=== PATIENT | female | born 1960 | race Caucasian/White ===

== ENCOUNTER → 2023-10-14 07:38 | Outpatient (REF) | payer MEDICARE, OTHER, SELFPAY | LOC: WDC 07:38 | PROVIDERS: ATTENDING PHYSICIAN Surgery; FAMILY PHYSICIAN Family Medicine | DX: R92.2 Inconclusive mammogram (principal) | CPT/HCPCS: 76641 ==

== ENCOUNTER → 2023-12-16 07:26 | Outpatient (REF) | payer MEDICARE, OTHER, SELFPAY | LOC: WDC 07:26 | PROVIDERS: ATTENDING PHYSICIAN Obstetrics & Gynecology; FAMILY PHYSICIAN Family Medicine | DX: Z12.31 Encounter for screening mammogram for malignant neoplasm of breast (principal) | CPT/HCPCS: 77063; 77067 ==

== ENCOUNTER 2024-04-17 17:59 | Emergency (ER) | payer MEDICARE, OTHER, SELFPAY ==
[2024-04-17 18:07] VITALS: BP 170/95
--- NOTE | 2024-04-17 19:23 | ED.GENMED ---
History of Present Illness
General
Chief Complaint: Swallowing Problem
Source: patient
Exam Limitations: none
Time Seen by Provider: 04/17/24 18:58
History of Present Illness
History of Present Illness:
64yoF with a history of chronic sinusitis, hyperlipidemia, hypertension, and GERD presenting with her for evaluation of throat irritation. Patient was eating a crews cordial about 3 hours ago and was sucking on the liquid. She accidentally
swallowed the piece of chocolate and 'it went down the wrong pipe.' She was able to cough up the chocolate but she continues to have a tickle in the back of her throat with frequent coughing. She is worried that she may have aspirated.
Past History
Past History
ED Past Medical History: GERD, Psychiatric (Anxiety/depression, Panic disorder) and Other (Chronic sinusitis, back pain, Migraines, 'Bronchial asthma', Diverticulitis, UTI)
ED Past Surgical History: Gynecological (Hysterectomy, D&C �2) and Other (s/p adrenal mass excision-benign, s/p right lung nodule excision-encapsulated TB, cyst removed from face, sinus surgery X 3, calcification removed from breast)
Social History
Tobacco: Former smoker
Alcohol: None
Personal:
Living: with family
Employment: Employed
Family History
Family History: Negative Early CAD or Other (early cva)
Phy Exam
General Physical Exam
General Presentation: well appearing and no apparent distress
General age: appears stated age
General Skin: warm and dry
General Habitus: normal
General Mental: alert
ENT Exam
ENT Exam: pharynx normal, normocephalic and other (Posterior oropharynx appears normal. Normal phonation. Tolerating oral secretions without difficulty.)
Cardiovascular Exam
Cardiovascular Exam: regular rate/rhythm
Pulmonary Exam
Pulmonary Exam: lungs clear, no respiratory distress, no rales, no crackles, no rhonchi and other (Frequent clearing of throat)
Neurological Exam
Neurological Exam: alert
Heriberto Coma Scale
Eye Opening: Spontaneous
Verbal Response: Oriented
Motor Response: Obeys Commands
GCS Total Score: 15
Skin Exam
Skin Exam: normal color and warm/dry
Psychiatric Exam
Psychiatric Exam: normal mood/affect
Course
Orders/Labs/Results
Orders:
Orders
04/17/24 18:08
CR Chest - 2 Views Urgent
Comment:
Reason For Exam: cough
04/17/24 18:11
Neck Soft Tissue [CR Soft Tissue Neck ] Urgent
Comment:
Reason For Exam: chocked on a crews
Vital Signs
Initial and Last Documented VS:
Initial Vital Signs
Temp Pulse Resp BP Pulse Ox
98.7 F 91 18 170/95 98
04/17/24 18:07 04/17/24 18:07 04/17/24 18:07 04/17/24 18:07 04/17/24 18:07
Last Documented Vital Signs
Temp Pulse Resp BP Pulse Ox
98.7 F 76 17 146/79 98
04/17/24 18:07 04/17/24 19:24 04/17/24 19:24 04/17/24 19:24 04/17/24 19:24
MDM/Problems Addressed
Differential Diagnosis Includes:
64yoF here with throat irritation and cough after swallowing a crews cordial candy a few hours ago. States it went down the wrong pipe and she is worried about aspiration. Patient is hypertensive in triage with otherwise normal vital signs.
Oxygen saturation 98% on room air. Patient has frequent throat clearing throughout exam. Posterior oropharynx appears normal. Lungs clear to auscultation and respirations nonlabored. Differential diagnosis includes but is not limited to: Throat
irritation, aspiration, doubt obstructing food bolus
Soft tissue neck x-ray and chest x-ray obtained in triage. Imaging negative for acute findings. No indication for further testing at this time. Supportive care discussed including drinking fluids and honey. Offered dose of viscous lidocaine
which she declines. Advised follow-up with PCP and ED return precautions discussed. Patient discharged in stable condition.
*Critical Care Note
Total Time (30-74mins, 75-104mins- exclusive of procedures): Not Applicable
ED Attending Note
-
Portions of this chart may have been created with voice recognition software.� Occasional wrong word or��sound alike� substitutions may have occurred due to the inherent limitations of voice recognition software.
Discharge Plan
Departure
Patient Disposition: Home (Routine Discharge)
Date of Disposition: 04/17/24
Time of Disposition: 19:24
Patient with high blood pressure during this ER visit?: Yes
Discharge Problem:
Tickle in throat
Instructions: Sore throat in adults
Prescriptions:
No Action
esomeprazole magnesium [Nexium] 40 MG capsule,delayed release(DR/EC)
40 mg PO DAILY
cholecalciferol (vitamin D3) 2,000 UNIT tablet
2,000 unit PO DAILY
diphenoxylate-atropine 1 TABLET tablet
1 tab PO Q6HPRN PRN (Reason: diarrhea) Qty: 12 0RF
ondansetron 4 MG tablet,disintegrating
4 mg PO QIDPRN PRN (Reason: NAUSEA) Qty: 15 0RF
dicyclomine 10 MG capsule
10 mg PO QIDPRN PRN (Reason: abdominal cramping pain) Qty: 20 0RF
levofloxacin 750 mg tablet
750 mg PO DAILY 5 Days Qty: 5 0RF
prednisone 20 mg tablet
20 mg PO DAILY Qty: 4 0RF
albuterol sulfate [ProAir HFA] 90 mcg/actuation HFA aerosol inhaler
1 puff inhalation Q4HPRN PRN (Reason: shortness of breath) Qty: 8.5 0RF
Activity Restrictions/Additional Instructions:
Drink plenty of fluids and use honey as needed for your throat irritation.
Please follow-up with your family doctor. Return to the ER with any new or worsening symptoms.
Interventions
Interventions:
*Risk Screen - Suicide Last Done: 04/17/24 18:06
*General Assessment Last Done: 04/17/24 18:06
*Neglect/Abuse Screening Last Done: 04/17/24 18:06
*ED COVID-19 Vaccine History Last Done: 04/17/24 18:06
*Nursing Disposition Last Done: 04/17/24 19:52
ED-EENT Assessment Last Done: 04/17/24 19:24
SK-Koiljw-Pkjxpvysaw Assessment Last Done: 04/17/24 19:24
ED- Pulmonary Assessment Last Done: 04/17/24 18:38
ED- Neurological Assessment Last Done: 04/17/24 18:38
ED Swallowing Screen Last Done: 04/17/24 19:24
Discharge Date and Time
Discharge Date/Time: 04/17/24 19:53
Print Language: [id number]
[2024-04-17 19:24] VITALS: BP 146/79
== END 2024-04-17 19:53 | disposition home or self-care (01) ==
LOC: EMR 17:59
PROVIDERS: EMERGENCY PHYSICIAN Emergency Medicine; FAMILY PHYSICIAN Family Medicine
DX: R05.9 Cough, unspecified (principal); E78.00 Pure hypercholesterolemia, unspecified; I10 Essential (primary) hypertension; J45.909 Unspecified asthma, uncomplicated; K21.9 Gastro-esophageal reflux disease without esophagitis; Z87.440 Personal history of urinary (tract) infections; Z87.891 Personal history of nicotine dependence; Z90.710 Acquired absence of both cervix and uterus
CPT/HCPCS: 99283; 70360; 71046

== ENCOUNTER → 2024-08-29 08:17 | Outpatient (REF) | payer MEDICARE, OTHER, SELFPAY | LOC: RAD 08:17 | PROVIDERS: ATTENDING PHYSICIAN Internal Medicine Gastroenterology; FAMILY PHYSICIAN Family Medicine | DX: R22.1 Localized swelling, mass and lump, neck (principal) | CPT/HCPCS: 76536 ==

== ENCOUNTER → 2024-09-05 07:56 | Outpatient (REF) | payer MEDICARE, OTHER, SELFPAY | LOC: RCS 07:56 | PROVIDERS: ATTENDING PHYSICIAN Physician Assistant; FAMILY PHYSICIAN Family Medicine | DX: R07.9 Chest pain, unspecified (principal); R06.02 Shortness of breath; R42 Dizziness and giddiness; R06.09 Other forms of dyspnea | CPT/HCPCS: 93017; 93350 ==

== ENCOUNTER → 2024-10-04 10:29 | Outpatient (REF) | payer MEDICARE, OTHER, SELFPAY | LOC: WDC 10:29 | PROVIDERS: ATTENDING PHYSICIAN Surgery; FAMILY PHYSICIAN Family Medicine | DX: R92.2 Inconclusive mammogram (principal) | CPT/HCPCS: 76641 ==

== ENCOUNTER → 2024-12-16 07:50 | Outpatient (REF) | payer MEDICARE, OTHER, SELFPAY | LOC: WDC 07:50 | PROVIDERS: ATTENDING PHYSICIAN Obstetrics & Gynecology; FAMILY PHYSICIAN Family Medicine | DX: Z12.31 Encounter for screening mammogram for malignant neoplasm of breast (principal) | CPT/HCPCS: 77063; 77067 ==